=== PATIENT | female | born 1965 | race African-American/Black ===

== ENCOUNTER 2018-06-03 23:58 | Emergency (ER) | payer OTHER ==
[~2018-06-03] VITALS: Ht 149.9 cm; Wt 59.9 kg
[2018-06-04] MEDS ORDERED: ONDANSETRON HCL 4 MG ORAL DISINTEGRATING TAB PO ONE (00:15)
[2018-06-04] MEDS ORDERED: PREDNISONE 20 MG TAB PO ONE (00:15)
[2018-06-04] MEDS ORDERED: KETOROLAC TROMETHAMINE 60 MG/2 ML VIAL IM ONE (00:15)
[2018-06-04] MEDS ORDERED: HYDROCODONE/APAP 5MG-325MG TAB PO ONE (00:15)
--- NOTE | 2018-06-04 01:10 | Diagnostic Imaging Report ---
Lumbar Spine Radiographs: 3 views HISTORY: Low back pain. COMPARISON: None available. DISCUSSION: There are five non-rib bearing lumbar vertebral bodies. The alignment of the spine is within normal limits. No displaced fracture or compression deformity is identified. Minimal spondylosis at L4-L5 and L5-S1. The osseous structures are partially obscured by stool and bowel gas. IMPRESSION: No acute osseous abnormality. Signed by: Dr. Blue Shah M.D. on 06/04/2018 1:06 AM
[2018-06-04 01:24] VITALS: BP 157/90
== END 2018-06-04 01:40 | disposition home or self-care (01) ==
LOC: FSED 23:58
DX: M54.41 Lumbago with sciatica, right side (principal); M54.16 Radiculopathy, lumbar region; M51.26 Other intervertebral disc displacement, lumbar region
CPT/HCPCS: 72100; 81003; 99283